=== PATIENT | female | born 1955 | race Caucasian/White ===

== ENCOUNTER 2021-02-27 11:46 | Emergency (ER) | payer BC, SELFPAY ==
--- NOTE | 2021-02-27 11:50 | ED.GENADULT ---
HPI - General Adult General Chief complaint: Urogenital-Female Stated complaint: BURNING URINATION Time Seen by Provider: 02/27/21 12:06 Source: patient and RN notes reviewed Mode of arrival: ambulatory Limitations: no limitations History of Present Illness HPI narrative: 66-year-old female presents with urinary complaints for the past 2 days. Tri reports being in a car riding and holding urine for a long period of time and now has increasing urinary symptoms. Dysuria consist of LT lower back pain, chills, burning, small amounts, frequency, and urgency.? Azo, cranberry juice, and increase water intake without relief. Denies fever. No significant pelvic pain. No vaginal discharge.? No concerns for STDs. Exacerbating factors urinating.? Denies hematuria or vaginal bleeding. LMP post menopausal then hysterectomy.? No flank pain. Denies nausea, vomiting, and abdominal pain.? Tolerating liquids well.? Remains active. The patient reports she have not been diagnosed with COVID-19. The patient reports she received 2 Moderna COVID-19 vaccines. The patient reports she is not waiting for the results of a COVID-19 lab test. The patient reports she do not have weakness or fatigue. The patient reports she do not have a new or worsening cough or shortness of breath. Denies chest pain. The patient reports she do not have any rhinorrhea, congestion, sore throat, loss of taste or smell, and diarrhea. Recently traveling with family. Denies concerns for COVID-19 or exposures. At this time, patient is not suspected of having COVID-19. Some parts of this dictation were generated by voice recognition software and may contain typographical and/or grammatical inaccuracies. Related Data Home Medications Medication Instructions Recorded Confirmed blood sugar diagnostic #10 each 10/13/19 09/29/20 cetirizine 10 mg tablet 10 mg PO DAILY 10/13/19 02/27/21 famotidine 20 mg tablet 20 mg PO DAILY 10/13/19 02/27/21 fluticasone propionate 50 2 spray NASAL DAILY 10/13/19 02/27/21 mcg/actuation nasal spray,suspension lancets 26 gauge #100 each 10/13/19 09/29/20 biotin 5 mg capsule 5 mg PO DAILY 08/19/20 02/27/21 calcium carbonate 200 mg calcium 200 mg PO BID 08/19/20 02/27/21 (500 mg) chewable tablet multivitamin 1 tablet PO DAILY 08/19/20 02/27/21 dulaglutide [Trulicity] 0.75 mg SUBCUT WEEKLY 02/27/21 02/27/21 glipizide mg 02/27/21 lactobacillus combination no.8 1 cell PO DAILY 02/27/21 02/27/21 [Adult Probiotic] Allergies Allergy/AdvReac Type Severity Reaction Status Date / Time cephalexin Allergy Unknown shortness Verified 02/27/21 11:52 of breathe clindamycin Allergy Unknown diarreha Verified 02/27/21 11:52 doxycycline Allergy Unknown Unknown Verified 02/27/21 11:52 metoprolol Allergy Unknown Nausea Verified 02/27/21 11:52 metronidazole Allergy Unknown shortnes Verified 02/27/21 11:52 of breathe morphine Allergy Unknown Unknown Verified 02/27/21 11:52 oxycodone Allergy Unknown Unknown Verified 02/27/21 11:52 Penicillins Allergy Unknown Unknown Verified 02/27/21 11:52 Sulfa (Sulfonamide Allergy Unknown Unknown Verified 02/27/21 11:52 Antibiotics) sulfamethizole Allergy Unknown Unknown Verified 02/27/21 11:52 sulfamethoxazole Allergy Unknown Unknown Verified 02/27/21 11:52 trimethoprim Allergy Unknown Unknown Verified 02/27/21 11:52 OXYCODONE HCL Allergy Unknown Unknown Uncoded 02/27/21 11:52 Review of Systems Review of Systems: Narrative: CONSTITUTIONAL: Denies fever, sweats. Complains of chills. EYES: Denies visual changes, redness, discharge. ENT: Denies rhinorrhea, congestion, sore throat, otalgia. CARDIOVASCULAR: Denies chest pain, palpitations, edema. RESPIRATORY: Denies dyspnea, wheezing, cough. GASTROINTESTINAL: Denies abdominal pain, nausea, vomiting, diarrhea. GENITOURINARY: Complains of dysuria (burning, frequency, and urgency). Denies hematuria, abnormal discharge. SKIN: Denies rash or itching. MUSCULO
[2021-02-27 12:05] VITALS: BP 155/66; PULSE 88; RESP 16; TEMP 36.2; O2SAT 99
== END 2021-02-27 12:38 | disposition home or self-care (01) ==
PROVIDERS: Emergency Provider Nurse Practitioner Family; PCP Internal Medicine
DX: R30.0 Dysuria (principal); I10 Essential (primary) hypertension; K75.81 Nonalcoholic steatohepatitis (NASH); E11.42 Type 2 diabetes mellitus with diabetic polyneuropathy; Z93.3 Colostomy status; Z85.048 Personal history of other malignant neoplasm of rectum, rectosigmoid junction, and anus; Z85.50 Personal history of malignant neoplasm of unspecified urinary tract organ
CPT/HCPCS: 81003; 87077; 87086; 87088; 87186; 99213; G0463

== ENCOUNTER 2021-04-12 14:38 | Emergency (ER) | payer BC, SELFPAY ==
[2021-04-12] VITALS (17 sets, daily range): BP systolic 124–156; BP diastolic 62–91; PULSE 98–139; RESP 11–25; TEMP 36.8; O2SAT 92–100
--- NOTE | ~2021-04-12 | CT_ITS ---
EXAMINATION: CT abdomen pelvis w con DATE: 04/12/2021 17:51 INDICATION: Vomiting TECHNIQUE: Computed tomography (CT) of the abdomen and pelvis was performed with 100 cc Omnipaque 350 intravenous contrast. The dose-length product was 1355.52 mGy-cm. Automated exposure control and ite rative reconstruction technique were employed. COMPARISON: None. FINDINGS: Lung bases are unremarkable. Heart size normal. No significant pleural or pericardial effus ion. There is fatty infiltration of the liver. There is splenomegaly. There is mild stranding surroun ding the left adrenal gland, nonspecific. There is an accessory splenule. The pancreas, right adrenal gland and kidneys are unremarkable. Gallbladder not visualized, possibly surgically absent. Clinical ly correlate. Status post partial colectomy with left lower quadrant colostomy. No bowel obstruction. No significant vascular abnormality. No lymphadenopathy. No abnormal pelvic masses or fluid collecti ons. There is grade 2 spondylolisthesis at L5-S1 secondary to spondylolysis. Moderate lumbar spondylo sis. IMPRESSION: 1. Nonspecific stranding surrounding the left adrenal gland. This area history of recent trauma? 2: Splenomegaly. 3: Hepatic steatosis. 4: Status post partial colectomy with left lower quadrant colostomy. No obstruction. Reviewed, dictated and finalized at location A. IMPRESSION: 1. Nonspecific stranding surrounding the left adrenal gland. This area history of recent trauma? 2: Splenomegaly. 3: Hepatic steatosis. 4: Status post partial colectomy with left lower quadrant colostomy. No obstruc tion.
--- NOTE | ~2021-04-12 | XR_ITS ---
XR chest 1V portable 04/12/2021 16:46 Indication: Tachycardia. Nausea and vomiting. Procedure: AP portable chest Comparison: 03/16/2016 Findings: Heart size normal. Left basilar atelectasis. No focal pneumonia, edema, pleural effusion or pneumothorax. No acute osseous abnormality. Impression: 1: Left basilar atelectasis. Reviewed, dictated and finalized at location A. Impression: 1: Left basilar atelectasis.
[2021-04-12 15:11] LABS: Hematocrit 47.2 % (37.0-47.0); Hemoglobin 16.9 g/dL (12.0-15.0); Immature Platelet Fraction Pct 3.7 % (0.9-11.2); Mean Corpuscular HGB Conc 35.8 g/dl (32-36); Mean Corpuscular Hemoglobin 32.3 pg (26-34); Mean Corpuscular Volume 90.1 fl (80-100); Mean Platelet Volume 10.3 fl (7.4-10.4); Platelet Count Result 106 k/mm3 (150-375); Red Blood Count 5.24 M/mm3 (4.2-5.4); Red Cell Distribution Width 13.2 % (11.5-14.5); White Blood Count 8.1 K/mm3 (4.5-10.0)
[2021-04-12 15:19] LABS: Alanine Aminotransferase 90 U/L (4-35); Albumin Level 4.5 g/dL (3.5-5.1); Alkaline Phosphatase 117 U/L (38-126); Anion Gap 13 mmol/L (8-16); Aspartate Amino Transferase 95 U/L (14-36); Bilirubin,Total 1.1 mg/dL (0.2-1.3); Blood Urea Nitrogen 18 mg/dL (7-17); Calcium 9.1 mg/dL (8.4-10.2); Carbon Dioxide 20 mmol/L (22-30); Chloride 105 mmol/L (98-107); Estimated CRCL calculation 117 ml/min; Estimated Glomerular Filt Rate > 60; Glucose 266 mg/dL (65-105); Lipase 101 U/L (23-300); Potassium 4.2 mmol/L (3.4-5.0); Sodium 138 mmol/L (137-145)
[2021-04-12 15:41] LABS: Band Neutrophils Percent 7 % (0-6); Lymphocytes Absolute Manual 0.08 K/mm3 (1.1-4.5); Monocytes Absolute Manual 0.32 K/mm3 (0.1-0.90); Monocytes Percent Manual 4 % (3-9); Neutrophils Absolute Manual 7.69 K/mm3 (1.7-7.2); Neutrophils Percent Manual 88 % (46-73); Platelet Estimate Decreased (Adequate); Total Cells Counted 100
--- NOTE | 2021-04-12 16:21 | ECG_ITS ---
Measurements Intervals [place] Rate: 127 P: 2 [place]: 144 QRS: -13 QRSD: 102 T: 39 QT: 319 QTc: 464 Interpretive Statements SINUS TACHYCARDIA LOW QRS VOLTAGE IN PRECORDIAL LEADS INCOMPLETE RIGHT BUNDLE BRANCH BLOCK DELAYED PRECORDIAL R/S TRANSITION ABNORMAL ECG Electronically Signed On 04-12-2021 20:27:25 CDT by Ludwin Gilliam D.O.
[2021-04-12 16:34] LABS: Add Urine Microscopic? YES; Appearance Urine Cloudy (Clear); Bacteria Urine Trace /hpf; Bilirubin Urine Negative (Negative); Blood Urine Negative (Negative); Color Urine Amber (Yellow); Glucose Urine UA 1+ mg/dL (Negative); Ketones Urine 1+ mg/dL (Negative); Leukocyte Esterase Ur 3+ LEU/UL (Negative); Mucus Urine Rare /lpf; Nitrate Urine Negative (Negative); Protein Urine 1+ mg/dL (Negative); Squamous Epithelial Cell Urine Many /hpf (Few); Urobilinogen Urine Negative mg/dL (<2.0); WBC Urine 51-75 /hpf
--- NOTE | 2021-04-12 16:56 | ED.NAVMDI ---
HPI - Nausea/Vomiting/Diarrhea General Chief complaint: Nausea/Vomiting/Diarrhea Stated complaint: Vomiting Time Seen by Provider: 04/12/21 16:19 Source: patient and RN notes reviewed Mode of arrival: ambulatory Limitations: no limitations History of Present Illness HPI Narrative: This is a 66 year old female with history of DM, gastric sleeve, rectal cancer s/p colostomy who presents for evaluation of nausea and vomiting. She states she woke up this morning at 5 am with nausea and vomiting. She reports having intractable bilious vomiting. She reports mild abdominal cramping prior to vomiting but otherwise she denies abdominal pain. She reports she has been having output from her colostomy once the vomiting started. She denies fever, chills, chest pain, cough or sob. SHe does not that last weekend her grandchildren had a stomach bug but she was not around them much. MD elicited complaint: nausea and vomiting Onset (ago): hour(s) (11) Description of vomiting: bilious Associated nausea: Yes Context: sick contacts Related Data Home Medications Medication Instructions Recorded Confirmed blood sugar diagnostic #10 each 10/13/19 09/29/20 cetirizine 10 mg tablet 10 mg PO DAILY 10/13/19 02/27/21 fluticasone propionate 50 2 spray NASAL DAILY 10/13/19 02/27/21 mcg/actuation nasal spray,suspension lancets 26 gauge #100 each 10/13/19 09/29/20 biotin 5 mg capsule 5 mg PO DAILY 08/19/20 02/27/21 calcium carbonate 200 mg calcium 200 mg PO BID 08/19/20 02/27/21 (500 mg) chewable tablet multivitamin 1 tablet PO DAILY 08/19/20 02/27/21 dulaglutide [Trulicity] 0.75 mg SUBCUT WEEKLY 02/27/21 02/27/21 glipizide mg 02/27/21 Allergies Allergy/AdvReac Type Severity Reaction Status Date / Time cephalexin Allergy Unknown shortness Verified 04/12/21 17:33 of breathe clindamycin Allergy Unknown diarreha Verified 04/12/21 17:33 doxycycline Allergy Unknown Unknown Verified 04/12/21 17:33 metoprolol Allergy Unknown Nausea Verified 04/12/21 17:33 metronidazole Allergy Unknown shortnes Verified 04/12/21 17:33 of breathe morphine Allergy Unknown Unknown Verified 04/12/21 17:33 oxycodone Allergy Unknown Unknown Verified 04/12/21 17:33 Penicillins Allergy Unknown Unknown Verified 04/12/21 17:33 Sulfa (Sulfonamide Allergy Unknown Unknown Verified 04/12/21 17:33 Antibiotics) sulfamethizole Allergy Unknown Unknown Verified 04/12/21 17:33 sulfamethoxazole Allergy Unknown Unknown Verified 04/12/21 17:33 trimethoprim Allergy Unknown Unknown Verified 04/12/21 17:33 Review of Systems Review of Systems: All systems reviewed & are unremarkable except as noted in HPI and below Constitutional: Constitutional: Denies chills and Denies fever(s) Cardiovascular: Cardiovascular: Denies chest pain Respiratory: Respiratory: Denies cough and Denies dyspnea Gastrointestinal: Gastrointestinal: Denies abdominal pain, Denies diarrhea, Reports nausea and Reports vomiting Genitourinary: Genitourinary: Denies nocturia and Denies dysuria PMF Past Medical History Medical History (Updated 04/12/21 @ 20:43 by Yanci Kruse MD) Anxiety BMI 39.0-39.9,adult Colostomy in place Cutaneous abscess of abdominal wall Essential (primary) hypertension History of rectal cancer History of vaginal delivery x 3 BALDERAS (nonalcoholic steatohepatitis) Normal colonoscopy 2019 Type 2 diabetes mellitus treated with insulin Type 2 diabetes mellitus with diabetic polyneuropathy, without long-term current use of insulin Uterine cancer Weight loss counseling, encounter for Surgical History Surgical History (Updated 04/12/21 @ 16:57 by Yanci Kruse MD) History of endoscopy History of hernia repair History of hysterectomy Laceration of muscle and tendon of long extensor muscle of toe at ankle and foot level, right foot, initial encounter Status post bariatric surgery Family History Family History (Reviewed 02/27/21 @ 11:52 by Pablo
[2021-04-12 17:29] LABS: Lactic Acid Reflex 1.9 mmol/L (0.7-2.1); Magnesium 1.4 mg/dL (1.6-2.3)
[2021-04-12] MEDS: LACTATED RINGERS 1,000 ML 999 ML IV CONT ×2 (17:30→17:31)
[2021-04-12] MEDS: ONDANSETRON INJ 4 MG/2 ML VIAL IV PUSH (17:31)
[2021-04-12] MEDS: NITROFURANTOIN MONOHYD MACROCR 100 MG CAP PO (19:03)
== END 2021-04-12 20:59 | disposition home or self-care (01) ==
PROVIDERS: Emergency Medicine; Emergency Provider General Practice; PCP Internal Medicine
DX: N39.0 Urinary tract infection, site not specified (principal); E86.0 Dehydration; E11.42 Type 2 diabetes mellitus with diabetic polyneuropathy; I10 Essential (primary) hypertension; F41.9 Anxiety disorder, unspecified; K75.81 Nonalcoholic steatohepatitis (NASH); Z93.3 Colostomy status; Z85.048 Personal history of other malignant neoplasm of rectum, rectosigmoid junction, and anus; Z85.42 Personal history of malignant neoplasm of other parts of uterus; Z98.84 Bariatric surgery status; Z79.84 Long term (current) use of oral hypoglycemic drugs; R00.0 Tachycardia, unspecified; I45.10 Unspecified right bundle-branch block; R16.1 Splenomegaly, not elsewhere classified
CPT/HCPCS: 36415; 71045; 74177; 80053; 81001; 83605; 83690; 83735; 85025; 85055; 87086; 87088; 93005; 96361; 96374; 99284; A9270; J2405; J7120; Q9967

== ENCOUNTER 2021-07-22 08:46 | Outpatient (CLI) | payer BC, SELFPAY ==
--- NOTE | ~2021-07-22 | US_ITS ---
EXAMINATION: US abdomen limited EXAM DATE: 07/22/2021 09:34 INDICATION: Cirrhosis of the liver. TECHNIQUE: Multiple grayscale and Doppler images of the abdomen right upper quadrant were obtained (b y a technologist who performed the scan) and subsequently reviewed. Comparison is made to prior exami nation from 04/12/2021. FINDINGS: The pancreatic head and body are normal in appearance. The pancreatic tail is not visualized. There is echogenic liver parenchyma, hepatic steatosis. There are no focal liver lesions identified. Th ere is no evidence of intrahepatic biliary duct dilation. Portal venous flow was seen in the hepatop edal, normal direction and has normal Doppler waveform. No right-sided hydronephrosis. Common bile duct measures 4 mm, which is normal. The gallbladder fossa is unremarkable. IMPRESSION: 1. Hepatic steatosis. Reviewed, dictated and finalized at location B. IMPRESSION: 1. Hepatic steatosis.
== END 2021-07-22 08:47 | disposition home or self-care (01) ==
LOC: ANHIMG 08:48
PROVIDERS: PCP Internal Medicine; Visit Provider Internal Medicine Gastroenterology
DX: K74.60 Unspecified cirrhosis of liver (principal); K75.81 Nonalcoholic steatohepatitis (NASH)
CPT/HCPCS: 76705

== ENCOUNTER → 2021-11-03 12:14 | Outpatient (CLI) | payer BC, SELFPAY ==
--- NOTE | ~2021-11-03 | DEXA_ITS ---
Bone Density Report Name: GASTON AN Age: 66 Sex: Female Ethnicity: White Date of : 1955 Indication: postmenopausal; screening for osteoporosis; height loss; hysterectomy; Referring Provider: TRI, NORMAN [place] Study: Bone densitometry was performed. Exam Date: November 03, 2021 Accession number: [id number] Bone Density: Region BMD T-score Z-score Classification AP Spine (L1, L3, L4) 1.256 1.8 3.6 Normal Femoral Neck (Left) 0.682 -1.5 0.0 Osteopenia Total Hip (Left) 0.955 0.1 1.3 Normal Femoral Neck (Right) 0.772 -0.7 0.8 Normal Total Hip (Right) 0.982 0.3 1.5 Normal Total Hip Mean 0.969 0.2 1.4 Normal World Health Organization criteria for BMD impression classify patients as: Normal (T-score at or above -1.0), Osteopenia (T-score between -1.0 and -2.5), or Osteoporosis (T-score at or below -2.5). 10-year Fracture Risk(1): Major Osteoporotic Fracture 8.3% Hip Fracture 0.8% Reported Risk Factors: [place] (), Neck BMD=0.682, BMI=34.4 (1) FRAX(R) Version 3.08. Fracture probability calculated for an untreated patient. Fracture probability may be lower if the patient has received treatment. Clinical Information Provided by Patient: Has used the following medications: Vitamin D, Calcium Has the following medical conditions: Hysterectomy Patient maximum height was 68.5 Menopause Age: 38 No regular weight bearing exercise Does not regularly consume dairy products Drinks caffeinated beverages Onset of menses at age 11 Number of children 3 Impression: The patient has low bone mass, based on the Left Femoral Neck T-score. The patient has an estimated ten-year risk of hip fracture of 0.8% and an estimated ten-year risk of major fracture of 8.3%, based on the WHO FRAX algorithm. Discussion: BONE DENSITY IS LOW AT ONE OR MORE SKELETAL SITES. This patient's lowest T-score is low at one or more skeletal sites. It meets the World Health Organization's (WHO) criteria for ?low bone mass? (T-score between -1.0 and -2.5). The patient's 10-year risk of fracture as calculated by FRAX is less than the threshold where pharmacological therapy is recommended by the National Osteoporosis Foundation (NOF). However, all treatment decisions require clinical judgment and consideration of individual patient factors, including patient preferences, comorbidities, previous drug use, risk factors not captured in the FRAX model (e.g., frailty, falls, vitamin D deficiency, increased bone turnover, interval significant decline in bone density) and possible under or overestimation of fracture risk by FRAX. The patient should follow a healthful lifestyle (good nutrition with adequate calcium and vitamin D, and appropriate weight-bearing exercise). Follow-Up: Consider repeating this study in 2 to 3 years
== END ==
PROVIDERS: PCP Internal Medicine; Visit Provider Internal Medicine
DX: Z78.0 Asymptomatic menopausal state (principal); S92.909A Unspecified fracture of unspecified foot, initial encounter for closed fracture; X58.XXXA Exposure to other specified factors, initial encounter; M85.852 Other specified disorders of bone density and structure, left thigh
CPT/HCPCS: 77080

== ENCOUNTER 2022-04-20 10:02 | Emergency (ER) | payer BC, SELFPAY ==
[2022-04-20 10:14] VITALS: BP 146/71; PULSE 92; RESP 16; TEMP 36.2; O2SAT 99
--- NOTE | 2022-04-20 10:25 | ED.NECK ---
HPI - Neck Pain/Injury General Chief Complaint: Neck Pain/Injury Stated Complaint: right side shoulder and wrist pain Time Seen by Provider: 04/20/22 10:10 Source: patient Mode of arrival: ambulatory Limitations: no limitations History of Present Illness HPI Narrative: 67 y/o female presented for c/o head contusion and neck pain radiating to the right arm, unable to lift right arm, and right wrist pain/bruising from a fall down 1 full flight of stairs at home last night. She does not remember the fall but is unsure of loss of consciousness. She states that her case is only about a foot away from her bedroom, she thought she was walking into her bedroom but fell down the stairs. She states she took a Tylenol and 1 Vicodin last night to help with the pain. Denies numbness, tingling, weakness, nausea, vomiting, dizziness, chest pain, or shortness of breath. Related Data Home Medications Medication Instructions Recorded Confirmed blood sugar diagnostic (Contour #10 ea 10/13/19 04/20/22 Next Test Strips) cetirizine 10 mg tablet (Zyrtec) 10 mg PO DAILY 10/13/19 04/20/22 fluticasone propionate 50 2 spray intranasal DAILY 10/13/19 04/20/22 mcg/actuation nasal spray,suspension (Allergy Relief (fluticasone)) lancets 26 gauge (Easy Touch #100 ea 10/13/19 04/20/22 Safety Lancets) biotin 5 mg capsule 5 mg PO DAILY 08/19/20 04/20/22 calcium carbonate 200 mg calcium 200 mg PO BID 08/19/20 04/20/22 (500 mg) chewable tablet (Antacid (calcium carbonate)) multivitamin (Daily Multi-Vitamin) 1 tablet PO DAILY 08/19/20 04/20/22 insulin glargine 100 unit/mL (3 34 unit subcut DAILY 04/20/22 04/20/22 mL) subcutaneous pen (Lantus Solostar U-100 Insulin) insulin lispro 100 unit/mL 10 unit subcut TIDWMEAL 04/20/22 04/20/22 subcutaneous pen Allergies Allergy/AdvReac Type Severity Reaction Status Date / Time cephalexin Allergy Unknown shortness Verified 04/20/22 11:31 of breathe clindamycin Allergy Unknown diarreha Verified 04/20/22 11:31 doxycycline Allergy Unknown Unknown Verified 04/20/22 11:31 metoprolol Allergy Unknown Nausea Verified 04/20/22 11:31 metronidazole Allergy Unknown shortnes Verified 04/20/22 11:31 of breathe morphine Allergy Unknown Unknown Verified 04/20/22 11:31 oxycodone Allergy Unknown Unknown Verified 04/20/22 11:31 Penicillins Allergy Unknown Unknown Verified 04/20/22 11:31 Sulfa (Sulfonamide Allergy Unknown Unknown Verified 04/20/22 11:31 Antibiotics) sulfamethizole Allergy Unknown Unknown Verified 04/20/22 11:31 sulfamethoxazole Allergy Unknown Unknown Verified 04/20/22 11:31 trimethoprim Allergy Unknown Unknown Verified 04/20/22 11:31 Review of Systems Review of Systems: CONSTITUTIONAL: Denies body aches, fever, chills EYES: Denies visual changes CARDIOVASCULAR: Denies chest pain, palpitations, or edema. RESPIRATORY: Denies cough or dyspnea. GASTROINTESTINAL: Denies abdominal pain, nausea, vomiting, or diarrhea. SKIN: Reports bruising MUSCULOSKELETAL: Reports head, neck right wrist pain NEUROLOGIC: Denies numbness, tingling, or weakness. All systems reviewed & are unremarkable except as noted in HPI and below PMFSH Past Medical History Medical History Anxiety BMI 39.0-39.9,adult Colostomy in place Cutaneous abscess of abdominal wall Essential (primary) hypertension History of rectal cancer History of vaginal delivery x 3 BALDERAS (nonalcoholic steatohepatitis) Normal colonoscopy 2020 Type 2 diabetes mellitus treated with insulin Type 2 diabetes mellitus with diabetic polyneuropathy, without long-term current use of insulin Uterine cancer Weight loss counseling, encounter for Surgical History Surgical History History of endoscopy History of hernia repair History of hysterectomy Laceration of muscle and tendon of long extensor muscle of toe at ankle and fo
== END 2022-04-20 10:36 | disposition short-term general hospital (02) ==
PROVIDERS: Emergency Provider Nurse Practitioner Family; PCP Internal Medicine
DX: S00.03XA Contusion of scalp, initial encounter (principal); W10.9XXA Fall (on) (from) unspecified stairs and steps, initial encounter; M54.2 Cervicalgia; M25.531 Pain in right wrist; I10 Essential (primary) hypertension; K75.81 Nonalcoholic steatohepatitis (NASH); E11.42 Type 2 diabetes mellitus with diabetic polyneuropathy; Z85.42 Personal history of malignant neoplasm of other parts of uterus; Z85.048 Personal history of other malignant neoplasm of rectum, rectosigmoid junction, and anus; Z79.4 Long term (current) use of insulin; Z93.3 Colostomy status
CPT/HCPCS: 99212; G0463

== ENCOUNTER 2022-04-20 11:22 | Emergency (ER) | payer BC, SELFPAY ==
[2022-04-20] VITALS (10 sets, daily range): BP systolic 136–158; BP diastolic 66–94; PULSE 89–97; RESP 16–18; TEMP 36.6; O2SAT 96–99
--- NOTE | ~2022-04-20 | CT_ITS ---
EXAMINATION: CT cervical spine wo con DATE: 04/20/2022 12:34 INDICATION: Neck injury. Neck pain. Right shoulder pain. TECHNIQUE: Computed tomography (CT) of the cervical spine was performed without intravenous contrast. Automated exposure control and iterative reconstruction technique were employed. The dose-length pro duct was 427.74 mGy-cm. COMPARISON: None FINDINGS: There is 2 mm anterolisthesis of C7 on T1. There is a comminuted fracture involving the rig ht C6 pedicle and right lateral mass and right lamina. There is moderately decreased disc height at C 5-C6 and C6-C7. The following disc levels are specifically discussed: C2-C3: There is no uncovertebral joint osteoarthritis. There is severe left facet joint osteoarthriti s.. There is ankylosis of right facet joint with mild hypertrophy. There is no neural foraminal steno sis. There is no central canal stenosis. C3-C4: There is no uncovertebral joint osteoarthritis. There is mild bilateral facet joint osteoarthr itis. There is no neural foraminal stenosis. There is no central canal stenosis. C4-C5: There is mild left uncovertebral joint osteoarthritis. There is no facet joint osteoarthritis. There is no neural foraminal stenosis. There is no central canal stenosis. C5-C6: There is moderate and mild left uncovertebral joint osteoarthritis. There is mild left facet j oint osteoarthritis. There is mild right neural foraminal stenosis. There is mild central canal steno sis. C6-C7: There is moderate right and mild left uncovertebral joint osteoarthritis. There is severe righ t and moderate left facet joint osteoarthritis. There is no neural foraminal stenosis. There is mild central canal stenosis. C7-T1: There is no uncovertebral joint osteoarthritis. There is severe bilateral facet joint osteoart hritis. There is mild bilateral neural foraminal stenosis. There is no central canal stenosis. IMPRESSION: 1. Comminuted fracture involving the right C6 pedicle, lateral mass, and lamina. I called this result to Dr. Burton. 2. Moderate cervical spondylosis. Reviewed, dictated and finalized at location A. IMPRESSION: 1. Comminuted fracture involving the right C6 pedicle, lateral mass, and lamina . I called this result to Dr. Burton. 2. Moderate cervical spondylosis.
--- NOTE | ~2022-04-20 | CT_ITS ---
EXAMINATION: CT brain wo con DATE: 04/20/2022 12:33 INDICATION: Loss of consciousness. Fall. Neck pain. TECHNIQUE: Computed tomography (CT) of the head was performed without intravenous contrast. The mA wa s adjusted according to patient size. Iterative reconstruction technique was employed. The dose-lengt h product was 605.33 mGy-cm. COMPARISON: None FINDINGS: There is no intracranial hemorrhage, acute infarction, or abnormal intracranial mass lesion . The ventricles are normal in size. The paranasal sinuses are clear. The mastoid air cells are taye l. The orbits are normal. There is right posterolateral and left superior scalp soft tissue swelling. IMPRESSION: 1. Normal brain. Reviewed, dictated and finalized at location A. IMPRESSION: 1. Normal brain.
--- NOTE | ~2022-04-20 | XR_ITS ---
EXAMINATION: XR shoulder RT min 2V, XR humerus RT DATE: 04/20/2022 12:43 INDICATION: Right shoulder and upper arm pain post fall TECHNIQUE: 1. AP internally and externally rotated, AP oblique externally rotated and transscapular Y views of t he right shoulder were obtained. 2. Internal and externally rotated views of the right humerus were obtained. COMPARISON: None FINDINGS: Bone alignment is normal. No fracture. Glenohumeral joint is normal. Mild osteoarthritis at the righ t acromioclavicular and elbow joints. No elbow joint effusion. Small likely degenerative loose body a long the proximal right humeral diaphysis likely within the long head biceps tendon sheath. Soft tiss ues are unremarkable. Visualized portions of the right lung are clear. 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 No acute osseous abnormality. Reviewed, dictated and finalized at location B. 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 No acute o sseous abnormality.
--- NOTE | 2022-04-20 11:31 | ECG_ITS ---
Measurements Intervals [place] Rate: 85 P: 44 MD: 153 QRS: 29 QRSD: 97 T: 44 QT: 367 QTc: 438 Interpretive Statements SINUS RHYTHM LOW-VOLTAGE QRS PRECORDIAL LEADS INCOMPLETE RIGHT BUNDLE BRANCH BLOCK [90+ ms QRS DURATION, TERMINAL R IN V1/V2, 40+ ms S IN I/aVL/V4/V5/V6] ABNORMAL ECG COMPARED TO ECG 04/12/2021 16:51:00 HEART RATE HAS DECREASED Electronically Signed On 04-20-2022 17:56:05 CDT by Abelardo Santos M.D.
--- NOTE | 2022-04-20 11:38 | PC.NURSE ---
pt placed in c-collar
--- NOTE | 2022-04-20 13:18 | ED.FALL ---
HPI - Fall General Chief Complaint: Fall Stated Complaint: FALL DOWN STEPS Time Seen by Provider: 04/20/22 12:26 History of Present Illness HPI Narrative: Pt fell down flight of stairs yesterday morning. Pt unsure if LOC. Pt complains of right sided neck and shoulder pain. Pt says that her fine motor in her right hand was off yesterday but this has resolved. Pt went to [facility] and was sent to [facility] by private vehicle. Related Data Home Medications Medication Instructions Recorded Confirmed blood sugar diagnostic (Contour #10 ea 10/13/19 04/20/22 Next Test Strips) cetirizine 10 mg tablet (Zyrtec) 10 mg PO DAILY 10/13/19 04/20/22 fluticasone propionate 50 2 spray intranasal DAILY 10/13/19 04/20/22 mcg/actuation nasal spray,suspension (Allergy Relief (fluticasone)) lancets 26 gauge (Easy Touch #100 ea 10/13/19 04/20/22 Safety Lancets) biotin 5 mg capsule 5 mg PO DAILY 08/19/20 04/20/22 calcium carbonate 200 mg calcium 200 mg PO BID 08/19/20 04/20/22 (500 mg) chewable tablet (Antacid (calcium carbonate)) multivitamin (Daily Multi-Vitamin 1 tablet PO DAILY 08/19/20 04/20/22 tablet) insulin glargine 100 unit/mL (3 34 unit subcut DAILY 04/20/22 04/20/22 mL) subcutaneous pen (Lantus Solostar U-100 Insulin) insulin lispro 100 unit/mL 10 unit subcut TIDWMEAL 04/20/22 04/20/22 subcutaneous pen Allergies Allergy/AdvReac Type Severity Reaction Status Date / Time cephalexin Allergy Unknown shortness Verified 04/20/22 11:31 of breathe clindamycin Allergy Unknown diarreha Verified 04/20/22 11:31 doxycycline Allergy Unknown Unknown Verified 04/20/22 11:31 metoprolol Allergy Unknown Nausea Verified 04/20/22 11:31 metronidazole Allergy Unknown shortnes Verified 04/20/22 11:31 of breathe morphine Allergy Unknown Unknown Verified 04/20/22 11:31 oxycodone Allergy Unknown Unknown Verified 04/20/22 11:31 Penicillins Allergy Unknown Unknown Verified 04/20/22 11:31 Sulfa (Sulfonamide Allergy Unknown Unknown Verified 04/20/22 11:31 Antibiotics) sulfamethizole Allergy Unknown Unknown Verified 04/20/22 11:31 sulfamethoxazole Allergy Unknown Unknown Verified 04/20/22 11:31 trimethoprim Allergy Unknown Unknown Verified 04/20/22 11:31 Review of Systems Review of Systems: All systems reviewed & are unremarkable except as noted in HPI and below PMFSH Past Medical History Medical History Anxiety BMI 39.0-39.9,adult Colostomy in place Cutaneous abscess of abdominal wall Essential (primary) hypertension History of rectal cancer History of vaginal delivery x 3 BALDERAS (nonalcoholic steatohepatitis) Normal colonoscopy 2020 Type 2 diabetes mellitus treated with insulin Type 2 diabetes mellitus with diabetic polyneuropathy, without long-term current use of insulin Uterine cancer Weight loss counseling, encounter for Surgical History Surgical History History of endoscopy History of hernia repair History of hysterectomy Laceration of muscle and tendon of long extensor muscle of toe at ankle and foot level, right foot, initial encounter Status post bariatric surgery Family History Family History Father Diabetes mellitus Grandparent Diabetes mellitus Father Diabetes mellitus Family history of hypercholesterolemia Hypertension Mother Diabetes mellitus Family history of hypercholesterolemia Hypertension Cerebrovascular accident Grandparent Carcinoma of colon Other Family history of malignant neoplasm of breast Social History Social History Smoking status: Never smoker Tobacco type: cigarettes Second hand tobacco smoke exposure: No Alcohol intake: current Substance use: never Additional living arrangements comments: spouse Additional occupation/edu
[2022-04-20 13:40] LABS: Basophils Percent Auto 0.3 % (0.2-1.2); Eosinophils Absolute Auto 0.2 K/mm3 (0-0.3); Eosinophils Percent Auto 3.1 % (0-4.4); Hematocrit 39.8 % (37.0-47.0); Hemoglobin 13.9 g/dL (12.0-15.0); Immature Granulocyte Absolute 0.04 K/mm3 (0.00-0.031); Immature Granulocyte Percent A 0.7 % (0-0.5); Immature Platelet Fraction Pct 3.9 % (0.9-11.2); Lymphocytes Percent Auto 20.8 % (18.3-44.2); Mean Corpuscular HGB Conc 34.9 g/dl (32-36); Mean Corpuscular Hemoglobin 32.2 pg (26-34); Mean Corpuscular Volume 92.1 fl (80-100); Mean Platelet Volume 10.5 fl (7.4-10.4); Monocytes Absolute Auto 0.5 K/mm3 (0.1-0.6); Monocytes Percent Auto 9.2 % (2.6-8.5); Neutrophils Absolute Auto 3.8 K/mm3 (1.3-6.7); Neutrophils Percent Auto 65.9 % (45.5-73.1); Platelet Count Result 97 k/mm3 (150-375); Red Blood Count 4.32 M/mm3 (4.2-5.4); Red Cell Distribution Width 13.2 % (11.5-14.5); White Blood Count 5.8 K/mm3 (4.5-10.0)
[2022-04-20 13:51] LABS: Alanine Aminotransferase 44 U/L (6-35); Albumin Level 4.4 g/dL (3.5-5.1); Alkaline Phosphatase 103 U/L (38-126); Anion Gap 8 mmol/L (8-16); Aspartate Amino Transferase 41 U/L (14-36); Bilirubin,Total 0.8 mg/dL (0.2-1.3); Blood Urea Nitrogen 12 mg/dL (7-17); Calcium 9.2 mg/dL (8.4-10.2); Carbon Dioxide 27 mmol/L (22-30); Chloride 102 mmol/L (98-107); Estimated CRCL calculation 112 ml/min; Estimated Glomerular Filt Rate > 60; Glucose 229 mg/dL (65-110); Potassium 4.2 mmol/L (3.4-5.0); Sodium 137 mmol/L (137-145)
[2022-04-20 14:13] LABS: INR 1.2; Prothrombin Time 14.7 Seconds (11.1-14.7)
[2022-04-20 14:14] LABS: Partial Thromboplastin Time 30.9 SECONDS (22.3-36.8)
== END 2022-04-20 13:40 | disposition short-term general hospital (02) ==
PROVIDERS: Emergency Provider Emergency Medicine; PCP Internal Medicine
DX: S12.590A Other displaced fracture of sixth cervical vertebra, initial encounter for closed fracture (principal); E11.42 Type 2 diabetes mellitus with diabetic polyneuropathy; I10 Essential (primary) hypertension; K75.81 Nonalcoholic steatohepatitis (NASH); Z85.048 Personal history of other malignant neoplasm of rectum, rectosigmoid junction, and anus; Z85.42 Personal history of malignant neoplasm of other parts of uterus; Z98.84 Bariatric surgery status; Z79.4 Long term (current) use of insulin; M19.021 Primary osteoarthritis, right elbow; M47.812 Spondylosis without myelopathy or radiculopathy, cervical region; I45.10 Unspecified right bundle-branch block; W10.9XXA Fall (on) (from) unspecified stairs and steps, initial encounter
CPT/HCPCS: 36415; 70450; 72125; 73030; 73060; 80053; 85025; 85055; 85610; 85730; 86850; 86900; 86901; 93005; 99284; L0140

== ENCOUNTER 2024-07-11 15:17 | Emergency (ER) | payer MEDICARE, BC, SELFPAY ==
[2024-07-11 15:40] VITALS: BP 110/59; PULSE 80; RESP 18; TEMP 36.4; O2SAT 97
--- NOTE | 2024-07-11 15:50 | ECG_ITS ---
Test Date: 2024-07-11 15:56:27 Measurements Intervals [place] Rate: 80 P: 99 AR: 188 QRS: 52 QRSD: 101 T: 143 QT: 397 QTc: 459 Interpretive Statements ELECTRONIC ATRIAL PACEMAKER LOW QRS VOLTAGE IN PRECORDIAL LEADS [QRS DEFLECTION < 1.0 mV IN CHEST LEADS] POSSIBLE INFERIOR MYOCARDIAL INFARCTION , OF INDETERMINATE AGE [30 ms Q WAVE IN II/aVF] No previous ECG available for comparison Electronically Signed On 07-12-2024 10:33:43 CDT by Monika Lugo M.D.
--- NOTE | 2024-07-11 15:55 | ED.SOB ---
HPI - SOB/Dyspnea General Chief Complaint: Shortness of Breath/Dyspnea Stated Complaint: dyspnea Time Seen by Provider: 07/11/24 15:50 Focused HPI: Patient is a 69 y/o female who presents to the ED with c/o SOB. Daughter at bedside assisted in providing information. Reports patient underwent mitral valve repair in April by a Dr. Garcia at [facility]. Had complicated course and was admitted to the hospital therefore prolonged period. Complicated by hypoxic respiratory failure, pacemaker placement, paroxysmal AFib, vocal cord paralysis, new need for dialysis. Patient was discharged from the hospital there to [facility]. She returned home from [facility] on Sunday of this week. daughter reports patient has been increasingly short of breath over this week. Has had a productive cough, but difficulty bringing up phlegm. Became hypoxic into the mid 80s today for daughter's portable pulse oximeter. Then prompted here for further evaluation. Patient admits to chest tightness currently. Denies any other areas of pain. Denies known fevers. Brake Adjuster = Dr. Holt Patient is now on hemodialysis T/, received full treatment yesterday. Patient is not currently on any blood thinners. Had left atrial appendage closure in valve surgery. Takes ASA 81mg. GENERAL: Mildly ill-appearing, well-nourished, and in no acute distress. HEAD: Normocephalic, atraumatic. CHEST: Mild tachypnea. Diffuse rhonchi throughout bilateral lower lungs. Frequent coughing. HEART: Regular rate and rhythm.? Trace lower extremity edema. NEURO: ?Alert and oriented x3. Patient screened in triage and initial orders placed.? ?Additional care and disposition to be based upon?diagnostic testing and treatment. Source: patient and family Mode of arrival: wheelchair Limitations: no limitations Related Data Home Medications Medication Instructions Recorded Confirmed albuterol sulfate 2.5 mg/3 mL 2.5 mg inhalation Q6H PRN wheezing 06/17/24 06/17/24 (0.083 %) solution for nebulization and shortness of breath Allergies Allergy/AdvReac Type Severity Reaction Status Date / Time cephalexin Allergy Unknown shortness Verified 04/20/22 11:31 of breathe clindamycin Allergy Unknown diarreha Verified 04/20/22 11:31 doxycycline Allergy Unknown Unknown Verified 04/20/22 11:31 metoprolol Allergy Unknown Nausea Verified 04/20/22 11:31 metronidazole Allergy Unknown shortnes Verified 04/20/22 11:31 of breathe morphine Allergy Unknown Unknown Verified 04/20/22 11:31 oxycodone Allergy Unknown Unknown Verified 04/20/22 11:31 Penicillins Allergy Unknown Unknown Verified 04/20/22 11:31 Sulfa (Sulfonamide Allergy Unknown Unknown Verified 04/20/22 11:31 Antibiotics) sulfamethizole Allergy Unknown Unknown Verified 04/20/22 11:31 sulfamethoxazole Allergy Unknown Unknown Verified 04/20/22 11:31 trimethoprim Allergy Unknown Unknown Verified 04/20/22 11:31 dulaglutide AdvReac Diarrhea Verified 06/17/24 18:30 glipizide AdvReac Diarrhea Verified 06/17/24 18:30 metformin AdvReac Diarrhea Verified 06/17/24 18:30 PMFSH Past Medical History Medical History Anxiety BMI 39.0-39.9,adult Colostomy in place Cutaneous abscess of abdominal wall Essential (primary) hypertension History of rectal cancer History of vaginal delivery x 3 BALDERAS (nonalcoholic steatohepatitis) Normal colonoscopy 2019 Type 2 diabetes mellitus treated with insulin Type 2 diabetes mellitus with diabetic polyneuropathy, without long-term current use of insulin Uterine cancer Weight loss counseling, encounter for Surgical History Surgical History History of endoscopy History of hernia repair History of hysterectomy Laceration of muscle and tendon of long extensor muscle of toe at ankle and foot level, right foot, initial encounter Status post bariatric surgery Fa
[2024-07-11 16:31] LABS: Glucose Point of Care 100 mg/dl (65-105)
[2024-07-11 16:35] LABS: Basophils Percent Auto 0.2 % (0.2-1.2); Eosinophils Absolute Auto 0.1 K/mm3 (0-0.3); Eosinophils Percent Auto 1.1 % (0-4.4); Hematocrit 29.1 % (37.0-47.0); Hemoglobin 9.7 g/dL (12.0-15.0); Immature Granulocyte Absolute 0.16 K/mm3 (0.00-0.031); Immature Granulocyte Percent A 1.3 % (0-0.5); Immature Platelet Fraction Pct 2.5 % (0.9-11.2); Lymphocytes Absolute Auto 0.79 K/mm3 (0.9-3.2); Lymphocytes Percent Auto 6.4 % (18.3-44.2); Mean Corpuscular HGB Conc 33.3 g/dl (32-36); Mean Corpuscular Hemoglobin 33.7 pg (26-34); Mean Platelet Volume 10.5 fl (7.4-10.4); Monocytes Absolute Auto 0.7 K/mm3 (0.1-0.6); Monocytes Percent Auto 5.8 % (2.6-8.5); Neutrophils Absolute Auto 10.5 K/mm3 (1.3-6.7); Neutrophils Percent Auto 85.2 % (45.5-73.1); Platelet Count Result 93 k/mm3 (150-375); Red Blood Count 2.88 M/mm3 (4.2-5.4); White Blood Count 12.4 K/mm3 (4.5-10.0)
[2024-07-11 16:46] LABS: Partial Thromboplastin Time 33.7 Seconds (22.3-36.8)
[2024-07-11 16:48] LABS: Alanine Aminotransferase 21 U/L (6-35); Albumin Level 2.7 g/dL (3.5-5.1); Alkaline Phosphatase 164 U/L (38-126); Anion Gap 9 mmol/L (4-12); Aspartate Amino Transferase 36 U/L (14-36); Bilirubin,Total 0.4 mg/dL (0.2-1.3); Blood Urea Nitrogen 17 mg/dL (7-17); Calcium 7.3 mg/dL (8.4-10.2); Carbon Dioxide 27 mmol/L (22-30); Chloride 97 mmol/L (98-107); Estimated Glomerular Filt Rate 38; Glucose 87 mg/dL (65-110); Potassium 2.9 mmol/L (3.4-5.0); Sodium 133 mmol/L (137-145)
[2024-07-11 16:59] LABS: INR 1.1; NT Pro B Type Natriuretic Pept 7850 pg/mL (19.9-100); Prothrombin Time 14.3 Seconds (11.1-14.7); Troponin I 0.013 ng/mL (0.000-0.034)
[2024-07-11 17:08] LABS: Platelet Estimate Decreased (Adequate)
[2024-07-11 17:09] LABS: Schistocytes None Seen
[2024-07-11 17:10] LABS: Anisocytosis 3+
[2024-07-11 17:27] LABS: Influenza A QL RT-PCR Negative (Negative); Influenza B QL RT-PCR Negative (Negative); RSV RNA, RT-PCR Negative (Negative); SARS-CoV-2 RNA PCR Positive (Negative)
--- NOTE | 2024-07-11 21:09 | PC.NURSE ---
no answer at triage for vital signs
--- NOTE | 2024-07-11 21:33 | PC.NURSE ---
no answer at triage
== END 2024-07-11 21:33 | disposition left against medical advice (07) ==
PROVIDERS: Emergency Provider Physician Assistant
DX: U07.1 COVID-19 (principal); E87.6 Hypokalemia; I12.9 Hypertensive chronic kidney disease with stage 1 through stage 4 chronic kidney disease, or unspecified chronic kidney disease; E11.22 Type 2 diabetes mellitus with diabetic chronic kidney disease; N18.9 Chronic kidney disease, unspecified; R79.89 Other specified abnormal findings of blood chemistry; J96.01 Acute respiratory failure with hypoxia; I48.0 Paroxysmal atrial fibrillation
CPT/HCPCS: 36415; 80053; 82948; 83880; 84484; 85025; 85055; 85610; 85730; 87637; 93005; 99284

== ENCOUNTER 2025-05-25 08:45 | Outpatient (RCR) | payer MEDICARE, BC, SELFPAY | END 2025-05-27 13:47 | disposition home or self-care (01) | LOC: ANHCPREHAB 08:45 | PROVIDERS: PCP Internal Medicine; Visit Provider Internal Medicine Cardiovascular Disease | DX: Z95.2 Presence of prosthetic heart valve (principal) | CPT/HCPCS: 93798 ==